=== PATIENT | female | born 1950 | race Caucasian/White ===

== ENCOUNTER 2018-12-01 05:56 | Day surgery (SDC) | payer MEDICARE, OTHER ==
[~2018-12-01] VITALS: Ht 167.6 cm; Wt 85.0 kg
[~2018-12-01 05:56] MED LIST: AMIT25TA9 PO; HYDR-3498 PO; LEVO25TA PO; ONDA4TAB8 PO; TRAM100T8 PO
[2018-12-01 07:10] VITALS: BP 133/62; PULSE 64; RESP 12; Ht 167.6 cm; Wt 85.0 kg
[2018-12-01] MEDS ORDERED: omeprazole (07:15)
--- NOTE | 2018-12-01 07:36 | PREAC ---
Date/Time of Note Date/Time of Note DATE: 12/01/18 TIME: 07:35 Anesthesia Eval and Record Evaluation Time Pre-Procedure Interview DATE: 12/01/18 TIME: 07:35 Age 68 Sex female NPO: 8 hrs Preoperative diagnosis abdominal pain, change in bowel habits Planned procedure EGD, colonoscopy Past Medical History Past Medical History: Includes Endo: Hypothyroid GI: GERD, Other (diverticulosis) Surgery & Anesthesia Issues No known issue Meds Anticoagulation: No Beta Otis within 24 hr: No Reason Beta Otis not given: Pt. not on B-Otis Reported Medications [omeprazole] No Conflict Check 12/01/18 Levothyroxine Sodium* (Synthroid*) 25 Mcg Tablet, 25 MCG PO DAILY 06/04/13 Discontinued Reported Medications Tramadol Hcl* (Ultram* ER) 100 Mg Tab.sr.24h, 100 MG PO DAILY 06/04/13 Discontinued Scripts Ondansetron Hcl* (Zofran*) 4 Mg Tablet, 4 MG PO Q6H for NAUSEA AND/OR VOMITING, #10 TAB Prov:JOSEPH MONREAL DO 08/28/15 Amitriptyline Hcl* (Amitriptyline Hcl*) 25 Mg Tablet, 25 MG PO HS, #30 TAB Prov:ILDA VERNON [employer] 06/10/15 Hydrocodone Bit-Acetaminophen* (Lagrange*) 5-325 Mg Tab, 1 TAB PO Q6 PRN for PAIN, #10 TAB Prov:ILDA VERNON [employer] 06/10/15 Meds reviewed: Yes Allergies Coded Allergies: No Known Drug Allergies (Verified Allergy, Unknown, 12/01/18) Allergies Reviewed: Yes Labs/Studies Labs Reviewed: Reviewed by anesthesiologist test: N/A Pre-procedure Exam Airway: Adequate mouth opening, Adequate thyromental dist Mallampati: Mallampati II Teeth: Normal Lung: Normal Heart: Normal ASA Physical Status ASA physical status: 2 Emergency: None Planned Anesthetic General/MAC: Mask Planned Pain Management Parenteral pain med Pre-operative Attestations Prior to commencing anesthesia and surgery, the patient was re-evaluated, there was verification of: *The patient's identity *The results of appropriate recent lab work and preoperative vital signs *The above evaluation not changing prior to induction *Anesthetic plan, risk benefits, alternative and complications discussed with patient/family; questions answered; patient/family understands, accepts and wishes to proceed. VIELKA FIELDS MD Dec 01, 2018 07:36
[2018-12-01] MEDS ORDERED: LIDOCAINE 2% (SDV) 5 ML INJ ONE (07:41)
[2018-12-01] MEDS ORDERED: PROPOFOL 40 ML ONE (07:41)
[2018-12-01] MEDS ORDERED: ONDANSETRON 4 MG INJ IV PRN (08:00)
[2018-12-01 08:35] VITALS: BP 117/55; PULSE 91; RESP 15
--- NOTE | 2018-12-01 08:35 | PAC ---
Date/Time of Note Date/Time of Note DATE: 12/01/18 TIME: 08:34 Post-Anesthesia Notes Post-Anesthesia Note Last documented vital signs Vital Signs Date Temp Pulse Resp B/P (MAP) Pulse Ox O2 O2 Flow FiO2 Time Delivery Rate 12/01/18 97.9 64 12 133/62 99 Room Air 07:10 (85) Activity: WNL Respiratory function: WNL Cardiovascular function: WNL Mental status: Baseline Pain reasonably controlled: Yes Hydration appropriate: Yes Nausea/Vomiting absent: Yes Comments Bp: 108/65 HR: 68 RR: 15 T: 98 SaO2: 100% VIELKA FIELDS MD Dec 01, 2018 08:35
[2018-12-01] MEDS ORDERED: PROPOFOL 20 ML ONE (08:38)
== END 2018-12-01 14:39 | disposition home or self-care (01) ==
LOC: GIL 05:56
PROVIDERS: ATTEND Internal Medicine Gastroenterology
DX: R19.4 Change in bowel habit (principal); K64.8 Other hemorrhoids; K44.9 Diaphragmatic hernia without obstruction or gangrene; K21.9 Gastro-esophageal reflux disease without esophagitis; E03.9 Hypothyroidism, unspecified
CPT/HCPCS: 88305